=== PATIENT | male | born 1995 | race Caucasian/White ===

== ENCOUNTER 2019-08-05 17:41 | Emergency (ER) | payer MEDICAID ==
[~2019-08-05] VITALS: Ht 172.7 cm; Wt 72.0 kg
[2019-08-05] MEDS ORDERED: MAGNESIUM/ALUMINUM HYDROXIDE/SIMETHICONE 30ML UDC PO STA (18:43)
[2019-08-05] MEDS ORDERED: FAMOTIDINE 20MG/2ML VIAL IV STA (18:43)
[2019-08-05] MEDS ORDERED: SODIUM CHLORIDE 0.9% 1,000 ML IV ONE (18:43)
[2019-08-05] MEDS ORDERED: ONDANSETRON HCL 4MG/2ML INJ IV STA (18:43)
[2019-08-05 19:08] LABS: BASOPHILS % 0.9 % (0.0-2.0); CHLORIDE 101 mEq/L (98-107); EOSINOPHILS % 0.2 % (0.0-5.0); HEMATOCRIT. 47.1 % (42.0-52.0); HEMOGLOBIN. 16.8 g/dL (14.0-18.0); LYMPHOCYTES % 22.5 % (20.0-50.0); MEAN CORPUSCULAR HEMOGLOBIN 32.9 pg (28.0-32.0); MEAN CORPUSCULAR VOLUME 92.2 fL (80.0-94.0); MEAN PLATELET VOLUME 8.6 fl (7.4-10.4); MONOCYTES % 6.2 % (2.0-8.0); NEUTROPHILS % 70.2 % (40.0-76.0); PLATELET 330 x1000/uL (130-400)
[2019-08-05 19:37] LABS: CLARITY URINE CLEAR (CLEAR); COLOR URINE YELLOW (YELLOW); KETONES URINE 1+ (NEGATIVE); LEUKOCYTE ESTERASE URINE NEGATIVE (NEGATIVE); NITRITE URINE NEGATIVE (NEGATIVE); OCCULT BLOOD URINE NEGATIVE (NEGATIVE); PROTEIN URINE NEGATIVE (NEGATIVE)
[2019-08-05] MEDS ORDERED: POTASSIUM CHLORIDE 20MEQ TABLET SR PO ONE (21:30)
[2019-08-05 22:30] VITALS: BP 127/75
== END 2019-08-05 23:28 | disposition home or self-care (01) ==
LOC: ER 17:41
DX: R11.10 Vomiting, unspecified (principal); R10.9 Unspecified abdominal pain; E87.6 Hypokalemia
CPT/HCPCS: 36415; 71045; 80053; 81003; 83690; 85025; 93005; 96361; 96374; 96375; 99285; J2405; J3490; J7030

== ENCOUNTER 2020-05-22 14:21 | Emergency (ER) | payer MEDICAID ==
[~2020-05-22] VITALS: Ht 177.8 cm; Wt 78.0 kg
[2020-05-22] MEDS ORDERED: ONDANSETRON HCL 4MG/2ML INJ IV STA (15:25)
[2020-05-22] MEDS ORDERED: SODIUM CHLORIDE 0.9% 1,000 ML IV ONE (15:30)
[2020-05-22 15:46] LABS: HEMATOCRIT. 46.6 % (42.0-52.0); HEMOGLOBIN. 16.1 g/dL (14.0-18.0); MEAN CORPUSCULAR HEMOGLOBIN 31.9 pg (28.0-32.0); MEAN CORPUSCULAR VOLUME 92.4 fL (80.0-94.0); MEAN PLATELET VOLUME 8.7 fl (7.4-10.4); PLATELET 282 x1000/uL (130-400); RED BLOOD CELL COUNT 5.04 mill/uL (4.7-6.1); RED CELL DISTRIBUTION WIDTH 11.8 % (11.6-14.6)
[2020-05-22 15:51] LABS: CHLORIDE 100 mEq/L (98-107)
[2020-05-22 15:54] LABS: PROTHROMBIN TIME 10.6 sec (9.6-11.0)
[2020-05-22 15:57] LABS: ETHANOL BLOOD < 10 mg/dL
[2020-05-22 16:19] LABS: PLATELET ESTIMATE NORMAL
[2020-05-22 17:12] LABS: CLARITY URINE CLEAR (CLEAR); COLOR URINE YELLOW (YELLOW); KETONES URINE NEGATIVE (NEGATIVE); LEUKOCYTE ESTERASE URINE NEGATIVE (NEGATIVE); NITRITE URINE NEGATIVE (NEGATIVE); OCCULT BLOOD URINE NEGATIVE (NEGATIVE); PROTEIN URINE NEGATIVE (NEGATIVE); SPECIFIC GRAVITY URINE 1.006 (1.005-1.030); UROBILINOGEN URINE 0.2 E.U./dL (0.2-1.0)
[2020-05-22 17:29] LABS: *AMPHETAMINES SCREEN URINE NEGATIVE (NEGATIVE); *BARBITURATES SCREEN URINE NEGATIVE (NEGATIVE); *BENZODIAZEPINES SCREEN URINE NEGATIVE (NEGATIVE); *COCAINE SCREEN URINE NEGATIVE (NEGATIVE); METHADONE URINE SCREEN NEGATIVE (NEGATIVE); OPIATES URINE SCREEN NEGATIVE (NEGATIVE)
[2020-05-22 17:30] LABS: CANNABINOID URINE SCREEN PRESUMTIVE POSITIVE (NEGATIVE); PHENCYCLIDINE URINE SCREEN NEGATIVE (NEGATIVE)
[2020-05-22] MEDS ORDERED: CHLORPROMAZINE HCL 10 MG TABLET PO ONE (18:15)
[2020-05-22] MEDS ORDERED: CHLO10TA10 MT (19:36)
[2020-05-22] MEDS ORDERED: ONDA4TAB5 MT (19:36)
[2020-05-22 19:45] VITALS: BP 122/74
== END 2020-05-22 20:01 | disposition home or self-care (01) ==
LOC: ER 14:21
DX: R11.10 Vomiting, unspecified (principal); R06.6 Hiccough; F12.10 Cannabis abuse, uncomplicated
CPT/HCPCS: 36415; 71045; 74176; 80053; 80305; 80320; 81003; 83690; 85025; 85610; 93005; 96361; 96374; 99285; J2405; J7030; Q0161; G0480

== ENCOUNTER 2020-05-26 23:03 | Emergency (ER) | payer MEDICAID, OTHER ==
[~2020-05-26] VITALS: Ht 177.8 cm; Wt 82.0 kg
[~2020-05-26 23:03] MED LIST: CHLO10TA10 MT; ONDA4TAB5 MT
[2020-05-26] MEDS ORDERED: MAGNESIUM/ALUMINUM HYDROXIDE/SIMETHICONE 30ML UDC PO STA (23:33)
[2020-05-26] MEDS ORDERED: FAMOTIDINE 20MG/2ML VIAL IV STA (23:33)
[2020-05-26] MEDS ORDERED: ONDANSETRON HCL 4MG/2ML INJ IV ONE (23:45)
[2020-05-26] MEDS ORDERED: SODIUM CHLORIDE 0.9% 1,000 ML IV ONE (23:45)
[2020-05-26 23:54] LABS: BASOPHILS % 0.6 % (0.0-2.0); EOSINOPHILS % 0.1 % (0.0-5.0); HEMATOCRIT. 42.1 % (42.0-52.0); HEMOGLOBIN. 15.1 g/dL (14.0-18.0); LYMPHOCYTES % 7.8 % (20.0-50.0); MEAN CORPUSCULAR HEMOGLOBIN 32.3 pg (28.0-32.0); MEAN CORPUSCULAR VOLUME 90.4 fL (80.0-94.0); MEAN PLATELET VOLUME 8.4 fl (7.4-10.4); NEUTROPHILS % 88.5 % (40.0-76.0); PLATELET 328 x1000/uL (130-400); RED BLOOD CELL COUNT 4.66 mill/uL (4.7-6.1); RED CELL DISTRIBUTION WIDTH 11.7 % (11.6-14.6)
[2020-05-26 23:59] LABS: CHLORIDE 101 mEq/L (98-107)
[2020-05-27] MEDS ORDERED: FAMO-135 MT (01:47)
[2020-05-27] MEDS ORDERED: ONDANSETRON HCL 4MG/2ML INJ IV ONE (02:00)
[2020-05-27 02:05] VITALS: BP 139/87
== END 2020-05-27 02:15 | disposition home or self-care (01) ==
LOC: ER 23:03
DX: R10.9 Unspecified abdominal pain (principal); R11.2 Nausea with vomiting, unspecified; Z91.048 Other nonmedicinal substance allergy status
CPT/HCPCS: 36415; 80053; 83690; 85025; 93005; 96361; 96374; 96375; 96376; 99284; J2405; J3490; J7030; Z7610

== ENCOUNTER 2021-01-10 09:30 | Inpatient (IN) | payer MEDICAID, OTHER ==
[~2021-01-10] VITALS: Ht 177.8 cm; Wt 77.1 kg
[~2021-01-10 09:30] MED LIST changes: +FAMO-135 MT; +HYDR-4346 MT
[2021-01-10] MEDS ORDERED: ONDANSETRON HCL 4MG/2ML INJ IV STA (12:02)
[2021-01-10] MEDS ORDERED: SODIUM CHLORIDE 0.9% 1,000 ML IV ONE (12:15)
[2021-01-10] MEDS ORDERED: PANTOPRAZOLE SODIUM 40 MG/VIAL IV ONE (12:15)
[2021-01-10 12:36] LABS: HEMOGLOBIN. 14.7 g/dL (14.0-18.0); MEAN CORPUSCULAR HEMOGLOBIN 30.9 pg (28.0-32.0); MEAN CORPUSCULAR VOLUME 92.5 fL (80.0-94.0); MEAN PLATELET VOLUME 8.9 fl (7.4-10.4); PLATELET 296 x1000/uL (130-400); RED BLOOD CELL COUNT 4.76 mill/uL (4.7-6.1); RED CELL DISTRIBUTION WIDTH 12.2 % (11.6-14.6)
[2021-01-10 12:41] LABS: CHLORIDE 103 mEq/L (98-107)
[2021-01-10 12:42] LABS: PROTHROMBIN TIME 10.9 sec (9.6-11.0)
[2021-01-10 12:45] LABS: ETHANOL BLOOD < 10 mg/dL
[2021-01-10 13:11] LABS: PLATELET ESTIMATE NORMAL
[2021-01-10 16:33] LABS: CLARITY URINE CLEAR (CLEAR); COLOR URINE YELLOW (YELLOW); KETONES URINE 4+ (NEGATIVE); LEUKOCYTE ESTERASE URINE NEGATIVE (NEGATIVE); NITRITE URINE NEGATIVE (NEGATIVE); OCCULT BLOOD URINE NEGATIVE (NEGATIVE); PROTEIN URINE 1+ (NEGATIVE); SPECIFIC GRAVITY URINE 1.027 (1.005-1.030)
[2021-01-10 17:15] LABS: *COCAINE SCREEN URINE NEGATIVE (NEGATIVE); CANNABINOID URINE SCREEN PRESUMTIVE POSITIVE (NEGATIVE); METHADONE URINE SCREEN NEGATIVE (NEGATIVE); OPIATES URINE SCREEN NEGATIVE (NEGATIVE); PHENCYCLIDINE URINE SCREEN NEGATIVE (NEGATIVE)
[2021-01-10 17:16] LABS: *AMPHETAMINES SCREEN URINE NEGATIVE (NEGATIVE)
[2021-01-10 17:17] LABS: *BENZODIAZEPINES SCREEN URINE NEGATIVE (NEGATIVE)
[2021-01-10 17:18] LABS: *BARBITURATES SCREEN URINE NEGATIVE (NEGATIVE)
[2021-01-10] MEDS ORDERED: CLONIDINE 0.1MG TABLET PO PRN (19:15)
[2021-01-10] MEDS ORDERED: ACETAMINOPHEN 325MG TABLET PO PRN (19:15)
[2021-01-10] MEDS ORDERED: DIPHENHYDRAMINE 50MG/ML VIAL IV PRN (19:15)
[2021-01-10] MEDS ORDERED: MORPHINE SULFATE 2 MG/ML CPJ (NOT FOR IM USE) IV PRN (19:15)
[2021-01-10] MEDS ORDERED: IPRATROPIUM/ALBUTEROL 0.5-3(2.5)MG/3ML NEB HHN PRN (19:15)
[2021-01-10] MEDS: ONDANSETRON HCL 4MG/2ML INJ IV PRN (23:48)
[2021-01-11] VITALS: BP 124/67
[2021-01-11] MEDS ORDERED: INDO50CA98 MT (02:34)
[2021-01-11 06:18] LABS: CHLORIDE 103 mEq/L (98-107)
[2021-01-11 08:00] VITALS: BP 114/71
[2021-01-11] MEDS: ONDANSETRON HCL 4MG/2ML INJ IV PRN (08:43)
[2021-01-11] MEDS: PANTOPRAZOLE SODIUM 40 MG/VIAL IV SCH (08:43)
[2021-01-11 12:00] VITALS: BP 134/80
[2021-01-11 16:00] VITALS: BP 130/78
[2021-01-11] MEDS ORDERED: MAGNESIUM/ALUMINUM HYDROXIDE/SIMETHICONE 30ML UDC PO PRN (16:00)
[2021-01-11] MEDS: METOCLOPRAMIDE HCL 10MG/2ML VIAL IV SCH (17:15)
[2021-01-11 20:00] VITALS: BP 112/68
[2021-01-11 20:50] LABS: HEPATITIS B SURFACE ANTIGEN NEGATIVE
[2021-01-12] VITALS: BP 104/58
[2021-01-12] MEDS: METOCLOPRAMIDE HCL 10MG/2ML VIAL IV SCH ×3 (00:22→12:51)
[2021-01-12 04:00] VITALS: BP 115/62
[2021-01-12 08:00] VITALS: BP 96/51
[2021-01-12 08:39] LABS: BASOPHILS % 0.9 % (0.0-2.0); EOSINOPHILS % 0.7 % (0.0-5.0); HEMATOCRIT. 43.5 % (42.0-52.0); HEMOGLOBIN. 14.8 g/dL (14.0-18.0); LYMPHOCYTES % 33.3 % (20.0-50.0); MEAN CORPUSCULAR HEMOGLOBIN 31.5 pg (28.0-32.0); MEAN CORPUSCULAR VOLUME 92.5 fL (80.0-94.0); MEAN PLATELET VOLUME 8.9 fl (7.4-10.4); MONOCYTES % 6.6 % (2.0-8.0); NEUTROPHILS % 58.5 % (40.0-76.0); PLATELET 277 x1000/uL (130-400); RED CELL DISTRIBUTION WIDTH 11.8 % (11.6-14.6)
[2021-01-12 09:04] LABS: PHOSPHORUS 3.1 mg/dL (2.5-4.9)
[2021-01-12 09:06] LABS: TOTAL IRON BINDING CAPACITY 278 ug/dL (250-450)
[2021-01-12 09:20] LABS: FERRITIN 82 ng/mL (22-322)
[2021-01-12] MEDS: PANTOPRAZOLE SODIUM 40 MG/VIAL IV SCH (09:21)
[2021-01-12 09:30] LABS: VITAMIN B12 SERUM 461 pg/mL (211-911)
[2021-01-12 11:11] LABS: CHLORIDE 104 mEq/L (98-107)
[2021-01-12 11:51] VITALS: BP 112/69
[2021-01-12] MEDS ORDERED: NALOXONE HCL 0.4MG/ML VIAL IV PRN (12:00)
[2021-01-12] MEDS ORDERED: POTASSIUM CHLORIDE 20MEQ TABLET SR PO NR (12:00)
[2021-01-12 12:28] LABS: BASOPHILS % 0.7 % (0.0-2.0); EOSINOPHILS % 1.1 % (0.0-5.0); HEMATOCRIT. 43.1 % (42.0-52.0); HEMOGLOBIN. 14.6 g/dL (14.0-18.0); LYMPHOCYTES % 29.5 % (20.0-50.0); MEAN CORPUSCULAR HEMOGLOBIN 31.3 pg (28.0-32.0); MEAN CORPUSCULAR VOLUME 92.4 fL (80.0-94.0); MEAN PLATELET VOLUME 8.9 fl (7.4-10.4); NEUTROPHILS % 61.7 % (40.0-76.0); PLATELET 281 x1000/uL (130-400); RED BLOOD CELL COUNT 4.67 mill/uL (4.7-6.1)
[2021-01-12 15:08] VITALS: BP 106/67
== END 2021-01-12 15:30 | disposition home or self-care (01) | DRG 253 ==
LOC: ER 09:30 → MICUSO 16:08 → EDBEDREQTM 16:17 → EDBEDREQ 16:17 → 7EST 23:02
PROVIDERS: ADMIT Internal Medicine; ATTEND Internal Medicine
DX: K92.2 Gastrointestinal hemorrhage, unspecified (principal); D72.829 Elevated white blood cell count, unspecified; E86.0 Dehydration; E80.6 Other disorders of bilirubin metabolism; F12.90 Cannabis use, unspecified, uncomplicated; Z88.8 Allergy status to other drugs, medicaments and biological substances; Z91.09 Other allergy status, other than to drugs and biological substances; Z79.891 Long term (current) use of opiate analgesic; Z79.899 Other long term (current) drug therapy
CPT/HCPCS: 36415; 74176; 76700; 80048; 80053; 80305; 80320; 81003; 82607; 82728; 82977; 83036; 83540; 83550; 83735; 84100; 84443; 85025; 86705; 86709; 86803; 86850; 86900; 87340; 93005; 93970; 99291; C9113; J2405; J2765; J7030; G0480

== ENCOUNTER 2021-05-08 17:46 | Inpatient (IN) | payer MEDICAID, OTHER ==
[~2021-05-08] VITALS: Ht 177.8 cm; Wt 80.3 kg
[~2021-05-08 17:46] MED LIST changes: -CHLO10TA10 MT; -HYDR-4346 MT
[2021-05-08] MEDS ORDERED: ONDANSETRON HCL 4MG/2ML INJ IV STA (19:43)
[2021-05-08] MEDS ORDERED: MORPHINE SULFATE 4 MG/ML CPJ (NOT FOR IM USE) IV STA (19:43)
[2021-05-08] MEDS ORDERED: SODIUM CHLORIDE 0.9% 1,000 ML IV ONE ×2 (19:45→21:00)
[2021-05-08 19:58] LABS: BASOPHILS % 0.6 % (0.0-2.0); HEMATOCRIT. 46.6 % (42.0-52.0); HEMOGLOBIN. 16.5 g/dL (14.0-18.0); LYMPHOCYTES % 7.5 % (20.0-50.0); MEAN CORPUSCULAR HEMOGLOBIN 32.2 pg (28.0-32.0); MEAN CORPUSCULAR VOLUME 90.9 fL (80.0-94.0); MEAN PLATELET VOLUME 9.2 fl (7.4-10.4); MONOCYTES % 5.6 % (2.0-8.0); NEUTROPHILS % 86.3 % (40.0-76.0); PLATELET 305 x1000/uL (130-400); RED BLOOD CELL COUNT 5.12 mill/uL (4.7-6.1); RED CELL DISTRIBUTION WIDTH 11.9 % (11.6-14.6)
[2021-05-08 20:03] LABS: CHLORIDE 101 mEq/L (98-107)
[2021-05-08] MEDS ORDERED: PANTOPRAZOLE SODIUM 40 MG/VIAL IV STA (20:59)
[2021-05-08] MEDS ORDERED: METOCLOPRAMIDE HCL 10MG/2ML VIAL IV ONE (21:00)
[2021-05-08] MEDS ORDERED: IOHEXOL-300 100 ML BOTTLE ONE (22:02)
[2021-05-09] VITALS (7 sets, daily range): BP systolic 113–139; BP diastolic 62–79
[2021-05-09 06:20] LABS: CLARITY URINE CLEAR (CLEAR); COLOR URINE DARK YELLOW (YELLOW); KETONES URINE TRACE (NEGATIVE); LEUKOCYTE ESTERASE URINE NEGATIVE (NEGATIVE); NITRITE URINE NEGATIVE (NEGATIVE); OCCULT BLOOD URINE NEGATIVE (NEGATIVE); PH URINE 6.5 (4.5-8.0); PROTEIN URINE 2+ (NEGATIVE); SPECIFIC GRAVITY URINE >1.040 (1.005-1.030)
[2021-05-09 06:44] LABS: *AMPHETAMINES SCREEN URINE NEGATIVE (NEGATIVE); *BARBITURATES SCREEN URINE NEGATIVE (NEGATIVE); *COCAINE SCREEN URINE NEGATIVE (NEGATIVE); CANNABINOID URINE SCREEN PRESUMTIVE POSITIVE (NEGATIVE); METHADONE URINE SCREEN NEGATIVE (NEGATIVE); OPIATES URINE SCREEN PRESUMTIVE POSITIVE (NEGATIVE); PHENCYCLIDINE URINE SCREEN NEGATIVE (NEGATIVE)
[2021-05-09 06:47] LABS: BASOPHILS % 0.4 % (0.0-2.0); EOSINOPHILS % 0.1 % (0.0-5.0); HEMATOCRIT. 43.4 % (42.0-52.0); HEMOGLOBIN. 14.9 g/dL (14.0-18.0); LYMPHOCYTES % 14.6 % (20.0-50.0); MEAN CORPUSCULAR HEMOGLOBIN 31.5 pg (28.0-32.0); MEAN CORPUSCULAR VOLUME 91.8 fL (80.0-94.0); MEAN PLATELET VOLUME 9.2 fl (7.4-10.4); MONOCYTES % 7.3 % (2.0-8.0); NEUTROPHILS % 77.6 % (40.0-76.0); PLATELET 274 x1000/uL (130-400); RED BLOOD CELL COUNT 4.73 mill/uL (4.7-6.1); RED CELL DISTRIBUTION WIDTH 11.9 % (11.6-14.6)
[2021-05-09 06:54] LABS: *BENZODIAZEPINES SCREEN URINE NEGATIVE (NEGATIVE)
[2021-05-09 07:20] LABS: CHLORIDE 104 mEq/L (98-107)
[2021-05-09] MEDS: PANTOPRAZOLE SODIUM 40 MG/VIAL IV SCH ×2 (09:23→20:12)
[2021-05-09] MEDS: ONDANSETRON HCL 4MG/2ML INJ IV PRN ×2 (15:03→20:12)
[2021-05-09] MEDS: DEXT 5%/0.45% NACL 1000ML 1,000 ML IV SCH (17:01)
[2021-05-09] MEDS ORDERED: METOCLOPRAMIDE HCL 10MG/2ML VIAL IV NR (22:30)
[2021-05-10] VITALS: BP 98/53
[2021-05-10] MEDS: DEXT 5%/0.45% NACL 1000ML 1,000 ML IV SCH ×3 (03:00→23:56)
[2021-05-10 04:00] VITALS: BP 115/62
[2021-05-10 07:44] LABS: BASOPHILS % 0.5 % (0.0-2.0); EOSINOPHILS % 0.3 % (0.0-5.0); HEMATOCRIT. 42.6 % (42.0-52.0); MEAN CORPUSCULAR HEMOGLOBIN 32.1 pg (28.0-32.0); MEAN CORPUSCULAR VOLUME 90.7 fL (80.0-94.0); MEAN PLATELET VOLUME 8.6 fl (7.4-10.4); NEUTROPHILS % 62.2 % (40.0-76.0); PLATELET 253 x1000/uL (130-400); RED CELL DISTRIBUTION WIDTH 11.7 % (11.6-14.6)
[2021-05-10 08:04] LABS: CHLORIDE 101 mEq/L (98-107)
[2021-05-10 08:30] VITALS: BP 99/57
[2021-05-10] MEDS: ONDANSETRON HCL 4MG/2ML INJ IV PRN ×3 (08:35→21:25)
[2021-05-10] MEDS: PANTOPRAZOLE SODIUM 40 MG/VIAL IV SCH ×2 (08:35→21:25)
[2021-05-10 12:00] VITALS: BP 128/81
[2021-05-10] MEDS ORDERED: POTASSIUM CHLORIDE 20MEQ TABLET SR PO SCH (13:30)
[2021-05-10 16:30] VITALS: BP 100/60
[2021-05-10 20:00] VITALS: BP 110/62
[2021-05-11] VITALS: BP 122/80
[2021-05-11 04:00] VITALS: BP 104/56
[2021-05-11 08:00] VITALS: BP 116/66
[2021-05-11] MEDS: PANTOPRAZOLE SODIUM 40 MG/VIAL IV SCH ×2 (09:41→21:29)
[2021-05-11] MEDS: ONDANSETRON HCL 4MG/2ML INJ IV PRN (09:41)
[2021-05-11] MEDS: DEXT 5%/0.45% NACL 1000ML 1,000 ML IV SCH ×2 (09:42→19:00)
[2021-05-11 12:00] VITALS: BP 110/54
[2021-05-11 16:00] VITALS: BP 107/63
[2021-05-11] MEDS: ONDANSETRON HCL 4MG/2ML INJ IV SCH (18:28)
[2021-05-11 20:00] VITALS: BP 113/70
[2021-05-12] VITALS: BP 112/60
[2021-05-12] MEDS: ONDANSETRON HCL 4MG/2ML INJ IV SCH ×3 (00:46→13:01)
[2021-05-12 04:00] VITALS: BP 111/71
[2021-05-12] MEDS: DEXT 5%/0.45% NACL 1000ML 1,000 ML IV SCH (05:59)
[2021-05-12 08:00] VITALS: BP 104/53
[2021-05-12] MEDS: PANTOPRAZOLE SODIUM 40 MG/VIAL IV SCH (08:57)
[2021-05-12 12:30] VITALS: BP 121/78
[2021-05-12 12:34] LABS: HEMATOCRIT. 40.4 % (42.0-52.0); HEMOGLOBIN. 14.5 g/dL (14.0-18.0); LYMPHOCYTES % 36.9 % (20.0-50.0); MEAN CORPUSCULAR HEMOGLOBIN 32.3 pg (28.0-32.0); MEAN PLATELET VOLUME 8.3 fl (7.4-10.4); MONOCYTES % 7.8 % (2.0-8.0); NEUTROPHILS % 53.3 % (40.0-76.0); PLATELET 268 x1000/uL (130-400); RED BLOOD CELL COUNT 4.49 mill/uL (4.7-6.1); RED CELL DISTRIBUTION WIDTH 11.7 % (11.6-14.6)
[2021-05-12 12:42] LABS: CHLORIDE 106 mEq/L (98-107)
[2021-05-12 13:43] VITALS: BP 121/78
[2021-05-12] MEDS ORDERED: POTASSIUM CHLORIDE 20MEQ TABLET SR PO NR (13:45)
== END 2021-05-12 15:58 | disposition home or self-care (01) | DRG 249 ==
LOC: ER 17:55 → MICUSO 22:34 → 6WST 05-09 01:01
PROVIDERS: ADMIT Internal Medicine; ATTEND Internal Medicine
DX: K52.9 Noninfective gastroenteritis and colitis, unspecified (principal); K22.6 Gastro-esophageal laceration-hemorrhage syndrome; R16.0 Hepatomegaly, not elsewhere classified; F12.10 Cannabis abuse, uncomplicated; Z88.8 Allergy status to other drugs, medicaments and biological substances; Z91.09 Other allergy status, other than to drugs and biological substances; Z79.899 Other long term (current) drug therapy; Z71.51 Drug abuse counseling and surveillance of drug abuser; R11.2 Nausea with vomiting, unspecified
CPT/HCPCS: 36415; 74177; 76700; 80048; 80053; 80305; 81003; 85025; 99285; C9113; J2270; J2405; J2765; J7030; Q9967

== ENCOUNTER 2022-04-22 21:07 | Emergency (ER) | payer MEDICAID, OTHER ==
[~2022-04-22] VITALS: Ht 177.8 cm; Wt 79.0 kg
[2022-04-22 22:18] VITALS: BP 122/82
[2022-04-22 23:30] LABS: CLARITY URINE CLEAR (CLEAR); COLOR URINE YELLOW (YELLOW); KETONES URINE NEGATIVE (NEGATIVE); LEUKOCYTE ESTERASE URINE NEGATIVE (NEGATIVE); NITRITE URINE NEGATIVE (NEGATIVE); OCCULT BLOOD URINE NEGATIVE (NEGATIVE); PH URINE 7.5 (4.5-8.0); PROTEIN URINE NEGATIVE (NEGATIVE); SPECIFIC GRAVITY URINE 1.005 (1.005-1.030); UROBILINOGEN URINE 0.2 E.U./dL (0.2-1.0)
[2022-04-23] MEDS ORDERED: ONDANSETRON 4MG ODT PO ONE (02:00)
[2022-04-23] MEDS ORDERED: VISCOUS LIDOCAINE 2% 15 ML UDC PO ONE (02:00)
[2022-04-23] MEDS ORDERED: MAGNESIUM/ALUMINUM HYDROXIDE/SIMETHICONE 30ML UDC PO ONE (02:00)
[2022-04-23 02:56] LABS: BASOPHILS % 0.7 % (0.0-2.0); HEMATOCRIT. 42.2 % (42.0-52.0); HEMOGLOBIN. 14.1 g/dL (14.0-18.0); LYMPHOCYTES % 28.4 % (20.0-50.0); MEAN CORPUSCULAR HEMOGLOBIN 31.7 pg (28.0-32.0); MEAN CORPUSCULAR VOLUME 94.7 fL (80.0-94.0); MEAN PLATELET VOLUME 8.5 fl (7.4-10.4); MONOCYTES % 4.8 % (2.0-8.0); NEUTROPHILS % 65.1 % (40.0-76.0); PLATELET 284 x1000/uL (130-400); RED BLOOD CELL COUNT 4.46 mill/uL (4.7-6.1)
[2022-04-23 02:59] LABS: CHLORIDE 105 mEq/L (98-107)
[2022-04-23] MEDS ORDERED: FAMO-135 MT (04:11)
== END 2022-04-23 04:42 | disposition home or self-care (01) ==
LOC: ER 21:07
DX: R10.13 Epigastric pain (principal); K70.0 Alcoholic fatty liver
CPT/HCPCS: 36415; 80053; 81003; 83690; 85025; 99284; Q0162